=== PATIENT | female | born 1955 | race Two or more races ===

== ENCOUNTER 2017-02-02 20:00 | Inpatient (IN) | payer OTHER ==
[~2017-02-02] VITALS: Ht 160 cm; Wt 41.0 kg
[~2017-02-02 20:00] MED LIST: HYDR200T PO; LISI5TAB7 PO; METO25TA91 PO; PRED5TAB PO; SODI650T PO
[2017-02-02] MEDS ORDERED: SODIUM CHLORIDE FLUSH 10ML SYR IVF ONE (20:30)
[2017-02-02] MEDS ORDERED: SODIUM CHLORIDE 0.9% 1,000ML IVBOLUS ONE (20:30)
[2017-02-02] MEDS ORDERED: ALBUTEROL SULFATE 2.5 MG/3 ML ONE (20:34)
[2017-02-02 21:22] LABS: HEMATOCRIT 29.9 % (34.6-47.8); HEMOGLOBIN 9.9 g/dL (11.7-16.4); WHITE BLOOD COUNT 4.1 x10^3/uL (3.4-10)
[2017-02-02 21:31] LABS: BLOOD UREA NITROGEN 74 mg/dL (7-18)
[2017-02-02 21:53] LABS: IS PT STATUS REG ER OR PRE ER? YES
[2017-02-02] MEDS ORDERED: ASPIRIN 81 MG TABLET CHEW ONE (22:00)
[2017-02-02] MEDS ORDERED: ASPIRIN 81 MG TABLET CHEW PO ONE (22:00)
[2017-02-02] MEDS ORDERED: NITROGLYCERIN OINT 2%, 1GM TP ONE ×2 (22:55→23:00)
[2017-02-02] MEDS ORDERED: FUROSEMIDE 40 MG/4 ML ONE (22:56)
[2017-02-02] MEDS ORDERED: HEPARIN 5,000 UNITS/ML, 1ML IV PRN (23:00)
[2017-02-02] MEDS ORDERED: HEPARIN 25,000 UNITS/500ML PMX 500 ML IV PRN (23:00)
[2017-02-02] MEDS ORDERED: FUROSEMIDE 40 MG/4 ML IVPush ONE (23:00)
[2017-02-02] MEDS ORDERED: HEPARIN 5,000 UNITS/ML, 1ML IV ONE (23:00)
[2017-02-02] MEDS: HYDROXYCHLOROQUINE 200 MG TABLET PO SCH (23:30)
[2017-02-02] MEDS ORDERED: morphine SULFATE 10 MG/ML, 1ML IV PRN (23:30)
[2017-02-02] MEDS ORDERED: NITROGLYCERIN 0.4 MG/SPRAY SL PRN (23:30)
[2017-02-02] MEDS ORDERED: NITROGLYCERIN 0.4 MG BOTTLE (25 TABS) SL PRN (23:30)
[2017-02-02] MEDS ORDERED: ASPIRIN 325 MG TABLET EC PO ONE (23:30)
[2017-02-02] MEDS: FUROSEMIDE 20 MG/2 ML IVPush SCH (23:30)
[2017-02-02] MEDS ORDERED: NITROGLYCERIN SINGLE TAB 0.4 MG SL PRN (23:30)
[2017-02-03] MEDS ORDERED: HEPARIN 5,000 UNITS/ML, 1ML ONE (00:02)
[2017-02-03] MEDS ORDERED: HEPARIN 25,000 UNITS/500ML PMX 500 ML ONE (00:02)
[2017-02-03 00:22] LABS: IS PT STATUS REG ER OR PRE ER? YES
[2017-02-03 02:00] VITALS: BP 148/88
[2017-02-03 02:04] VITALS: BP 148/88
[2017-02-03] MEDS: SODIUM CHLORIDE FLUSH 10ML SYR IVF SCH ×3 (02:50→21:08)
[2017-02-03] MEDS: METOPROLOL SUCCINATE 25 MG TAB.ER.24H PO SCH ×2 (02:51→21:08)
[2017-02-03] MEDS: SODIUM BICARBONATE 650 MG TABLET PO SCH ×3 (02:51→21:08)
[2017-02-03 02:59] LABS: IS PT STATUS REG ER OR PRE ER? NO
[2017-02-03] MEDS: ASPIRIN 325 MG TABLET EC PO SCH (06:51)
[2017-02-03 06:53] LABS: BLOOD UREA NITROGEN 71 mg/dL (7-18)
[2017-02-03 07:00] VITALS: BP 154/97
[2017-02-03 07:02] LABS: IS PT STATUS REG ER OR PRE ER? NO
[2017-02-03] MEDS: HYDROXYCHLOROQUINE 200 MG TABLET PO SCH (09:05)
[2017-02-03 11:34] VITALS: BP 149/93
[2017-02-03] MEDS: SPIRONOLACTONE 25 MG TABLET PO SCH (11:34)
[2017-02-03] MEDS: FUROSEMIDE 20 MG/2 ML IVPush SCH ×2 (11:34→21:08)
[2017-02-03 12:31] LABS: PTH INTACT INTERPRETATION ** Comment **
[2017-02-03 13:04] LABS: IS PT STATUS REG ER OR PRE ER? NO
[2017-02-03 13:45] VITALS: BP 135/93
[2017-02-03 18:52] LABS: IS PT STATUS REG ER OR PRE ER? NO
[2017-02-03 19:04] VITALS: BP 135/84
[2017-02-03] MEDS: HEPARIN 5,000 UNITS/ML, 1ML SQ SCH (21:09)
[2017-02-04 01:30] VITALS: BP 130/86
[2017-02-04] MEDS: ASPIRIN 325 MG TABLET EC PO SCH (06:00)
[2017-02-04 06:30] LABS: BLOOD UREA NITROGEN 86 mg/dL (7-18)
[2017-02-04 06:31] LABS: ASPARTATE AMINO TRANSFERASE 48 U/L (15-37); FERRITIN 1225.8 ng/mL (8-252); TOTAL IRON BINDING CAPACITY 213 mcg/dL (250-450)
[2017-02-04 06:37] LABS: HEMATOCRIT 39.2 % (34.6-47.8); HEMOGLOBIN 12.9 g/dL (11.7-16.4)
[2017-02-04 06:55] VITALS: BP 133/82
[2017-02-04] MEDS: HEPARIN 5,000 UNITS/ML, 1ML SQ SCH ×3 (07:52→21:06)
[2017-02-04 08:28] VITALS: BP 128/79
[2017-02-04] MEDS: SODIUM BICARBONATE 650 MG TABLET PO SCH ×5 (08:34→21:04)
[2017-02-04] MEDS: SPIRONOLACTONE 25 MG TABLET PO SCH (08:34)
[2017-02-04] MEDS: FUROSEMIDE 20 MG/2 ML IVPush SCH (08:37)
[2017-02-04] MEDS: SODIUM CHLORIDE FLUSH 10ML SYR IVF SCH ×2 (08:38→21:03)
[2017-02-04] MEDS: FUROSEMIDE 40 MG/4 ML IVPush SCH ×2 (11:16→21:04)
[2017-02-04 14:35] VITALS: BP 131/83
[2017-02-04 18:45] VITALS: BP 139/90
[2017-02-04] MEDS: METOPROLOL SUCCINATE 25 MG TAB.ER.24H PO SCH (21:05)
[2017-02-05 01:43] VITALS: BP 122/89
[2017-02-05 05:49] LABS: ASPARTATE AMINO TRANSFERASE 37 U/L (15-37)
[2017-02-05 06:01] LABS: BLOOD UREA NITROGEN 111 mg/dL (7-18)
[2017-02-05 06:41] LABS: HEMATOCRIT 30.5 % (34.6-47.8); WHITE BLOOD COUNT 8.1 x10^3/uL (3.4-10)
[2017-02-05 06:42] LABS: DIFF TOTAL CELLS COUNTED 100 CELL DIFF
[2017-02-05 06:43] LABS: ANISOCYTOSIS 1+; VERIFY COUNTS? YES
[2017-02-05 06:44] LABS: POLYCHROMASIA 1+
[2017-02-05 08:38] VITALS: BP 122/73
[2017-02-05] MEDS: FUROSEMIDE 40 MG/4 ML IVPush SCH ×2 (09:21→22:17)
[2017-02-05] MEDS: SODIUM CHLORIDE FLUSH 10ML SYR IVF SCH ×2 (09:21→22:14)
[2017-02-05] MEDS: SODIUM BICARBONATE 650 MG TABLET PO SCH ×2 (09:21→22:16)
[2017-02-05] MEDS: HEPARIN 5,000 UNITS/ML, 1ML SQ SCH ×2 (09:23→22:16)
[2017-02-05 13:07] LABS: COMPLEMENT C3 31 mg/dL (82-167); COMPLEMENT C4 9 mg/dL (14-44); COMPLEMENT TOTAL (CH50) 17 U/mL (42-60)
[2017-02-05 13:49] VITALS: BP 138/82
[2017-02-05 15:22] LABS: ANA SCREEN POSITIVE (Negative)
[2017-02-05 19:26] VITALS: BP 145/89
[2017-02-05] MEDS: METOPROLOL SUCCINATE 25 MG TAB.ER.24H PO SCH (22:16)
[2017-02-06 03:38] VITALS: BP 158/77
[2017-02-06 05:39] LABS: ASPARTATE AMINO TRANSFERASE 30 U/L (15-37); BLOOD UREA NITROGEN 82 mg/dL (7-18)
[2017-02-06 06:14] LABS: HEMATOCRIT 26.8 % (34.6-47.8); HEMOGLOBIN 8.7 g/dL (11.7-16.4); WHITE BLOOD COUNT 9.7 x10^3/uL (3.4-10)
[2017-02-06] MEDS: SODIUM CHLORIDE FLUSH 10ML SYR IVF SCH ×2 (07:44→21:14)
[2017-02-06] MEDS: FUROSEMIDE 40 MG/4 ML IVPush SCH ×2 (07:44→21:13)
[2017-02-06 08:00] VITALS: BP 143/75
[2017-02-06] MEDS: HEPARIN 5,000 UNITS/ML, 1ML SQ SCH ×2 (12:39→21:13)
[2017-02-06 14:21] VITALS: BP 130/74
[2017-02-06 20:11] VITALS: BP 133/77
[2017-02-07 01:38] VITALS: BP 121/70
[2017-02-07 05:12] LABS: ASPARTATE AMINO TRANSFERASE 58 U/L (15-37); BLOOD UREA NITROGEN 75 mg/dL (7-18)
[2017-02-07 06:32] LABS: HEMATOCRIT 27.7 % (34.6-47.8); HEMOGLOBIN 9.3 g/dL (11.7-16.4); WHITE BLOOD COUNT 10.3 x10^3/uL (3.4-10)
[2017-02-07 06:50] VITALS: BP 133/82
[2017-02-07] MEDS ORDERED: MORPHINE SULFATE 4 MG/ML, 1ML IVPush PRN (11:30)
[2017-02-07] MEDS: HEPARIN 5,000 UNITS/ML, 1ML SQ SCH ×2 (12:57→21:50)
[2017-02-07] MEDS: SODIUM CHLORIDE FLUSH 10ML SYR IVF SCH ×2 (12:57→21:49)
[2017-02-07] MEDS: FUROSEMIDE 40 MG/4 ML IVPush SCH ×2 (12:58→21:00)
[2017-02-07] MEDS: ONDANSETRON 2MG/ML, 2ML IV PRN (13:02)
[2017-02-07 14:14] VITALS: BP 133/73
[2017-02-07 18:59] VITALS: BP 125/74
[2017-02-07] MEDS: CALCIUM CARBONATE 500 MG TABLET PO SCH (21:00)
[2017-02-08 01:02] VITALS: BP 124/74
[2017-02-08 05:51] LABS: ASPARTATE AMINO TRANSFERASE 97 U/L (15-37); BLOOD UREA NITROGEN 48 mg/dL (7-18)
[2017-02-08 06:42] LABS: HEMATOCRIT 28.7 % (34.6-47.8); HEMOGLOBIN 9.3 g/dL (11.7-16.4); WHITE BLOOD COUNT 10.5 x10^3/uL (3.4-10)
[2017-02-08 06:48] VITALS: BP 118/69
[2017-02-08] MEDS: SODIUM CHLORIDE FLUSH 10ML SYR IVF SCH ×2 (10:27→20:38)
[2017-02-08] MEDS: FUROSEMIDE 40 MG/4 ML IVPush SCH ×2 (10:27→20:39)
[2017-02-08] MEDS: CALCIUM CARBONATE 500 MG TABLET PO SCH ×2 (10:28→20:38)
[2017-02-08] MEDS: HEPARIN 5,000 UNITS/ML, 1ML SQ SCH ×2 (10:29→20:39)
[2017-02-08 14:40] VITALS: BP 143/79
[2017-02-08 20:36] VITALS: BP 160/81
[2017-02-09 03:30] VITALS: BP 153/82
[2017-02-09 07:54] LABS: BLOOD UREA NITROGEN 70 mg/dL (7-18)
[2017-02-09 09:03] LABS: HEMATOCRIT 26.9 % (34.6-47.8); HEMOGLOBIN 8.8 g/dL (11.7-16.4); WHITE BLOOD COUNT 11.5 x10^3/uL (3.4-10)
[2017-02-09 09:05] VITALS: BP 152/79
[2017-02-09] MEDS: CALCIUM CARBONATE 500 MG TABLET PO SCH ×2 (09:10→21:48)
[2017-02-09] MEDS: HEPARIN 5,000 UNITS/ML, 1ML SQ SCH (09:11)
[2017-02-09] MEDS: FUROSEMIDE 40 MG/4 ML IVPush SCH ×2 (09:12→21:49)
[2017-02-09] MEDS: SODIUM CHLORIDE FLUSH 10ML SYR IVF SCH ×2 (09:19→21:48)
[2017-02-09 11:07] LABS: A/G RATIO 0.4 (0.7-1.7); ALBUMIN 2.2 g/dL (2.9-4.4); ALPHA-1-GLOBULIN 0.2 g/dL (0.0-0.4); BETA GLOBULIN 0.8 g/dL (0.7-1.3); GAMMA GLOBULIN 3.1 g/dL (0.4-1.8); PROTEIN TOTAL 7.1 g/dL (6.0-8.5)
[2017-02-09 14:00] VITALS: BP 146/95
[2017-02-09 14:08] LABS: UR ALBUMIN 20.3 % (.); UR ALPHA-1-GLOBULIN 2.4 % (.); UR ALPHA-2-GLOBULIN 11.8 % (.); UR BETA GLOBULIN 17.1 % (.); UR GAMMA GLOBULIN 48.4 % (.); UR M-SPIKE % Not Observed % (Not Observed)
[2017-02-09] MEDS ORDERED: LIDOCAINE 1%, 20ML ONE (14:26)
[2017-02-09] MEDS ORDERED: FENTANYL PF 100 MCG/2ML ONE (14:37)
[2017-02-09] MEDS ORDERED: NALOXONE 1 MG/ML, 2ML ONE (14:37)
[2017-02-09] MEDS ORDERED: FLUMAZENIL 0.1 MG/1 ML, 5ML ONE (14:37)
[2017-02-09] MEDS ORDERED: MIDAZOLAM 1 MG/ML, 5ML ONE (14:37)
[2017-02-09 21:43] VITALS: BP 136/77
[2017-02-09] MEDS: ACETAMINOPHEN 325 MG TABLET PO PRN (22:26)
[2017-02-10 04:00] VITALS: BP 149/88
[2017-02-10 04:57] LABS: HEMATOCRIT 26.2 % (34.6-47.8); HEMOGLOBIN 8.7 g/dL (11.7-16.4); WHITE BLOOD COUNT 11.9 x10^3/uL (3.4-10)
[2017-02-10 05:04] LABS: BLOOD UREA NITROGEN 93 mg/dL (7-18)
[2017-02-10 05:07] LABS: ASPARTATE AMINO TRANSFERASE 31 U/L (15-37)
[2017-02-10 08:14] VITALS: BP 153/85
[2017-02-10] MEDS: FUROSEMIDE 40 MG/4 ML IVPush SCH ×3 (13:04→21:25)
[2017-02-10] MEDS: CALCIUM CARBONATE 500 MG TABLET PO SCH ×2 (13:04→21:25)
[2017-02-10] MEDS: SODIUM CHLORIDE FLUSH 10ML SYR IVF SCH ×2 (13:04→21:26)
[2017-02-10] MEDS ORDERED: MIDAZOLAM 1 MG/ML, 5ML ONE (13:50)
[2017-02-10] MEDS ORDERED: NALOXONE 1 MG/ML, 2ML ONE (13:50)
[2017-02-10] MEDS ORDERED: FENTANYL PF 100 MCG/2ML ONE (13:50)
[2017-02-10] MEDS ORDERED: FLUMAZENIL 0.1 MG/1 ML, 5ML ONE (13:50)
[2017-02-10] MEDS ORDERED: LIDOCAINE 1%, 20ML ONE ×2 (13:51→15:21)
[2017-02-10 13:52] VITALS: BP 150/85
[2017-02-10] MEDS ORDERED: CEFAZOLIN PMX 1GM/50ML 50 ML ONE (14:22)
[2017-02-10 19:16] VITALS: BP 125/72
[2017-02-10] MEDS: ONDANSETRON 2MG/ML, 2ML IV PRN (21:35)
[2017-02-11 01:50] VITALS: BP 121/75
[2017-02-11 05:36] LABS: ASPARTATE AMINO TRANSFERASE 29 U/L (15-37); BLOOD UREA NITROGEN 48 mg/dL (7-18)
[2017-02-11 05:38] LABS: HEMATOCRIT 28.6 % (34.6-47.8); HEMOGLOBIN 9.3 g/dL (11.7-16.4); WHITE BLOOD COUNT 13.1 x10^3/uL (3.4-10)
[2017-02-11] MEDS: SODIUM CHLORIDE FLUSH 10ML SYR IVF SCH ×2 (07:49→19:49)
[2017-02-11] MEDS: CALCIUM CARBONATE 500 MG TABLET PO SCH (07:50)
[2017-02-11] MEDS: FUROSEMIDE 40 MG/4 ML IVPush SCH (07:50)
[2017-02-11 08:09] VITALS: BP 120/82
[2017-02-11] MEDS: FUROSEMIDE 40 MG TABLET PO SCH (10:30)
[2017-02-11 15:14] VITALS: BP 127/75
[2017-02-11 18:50] VITALS: BP 122/69
[2017-02-11 20:53] LABS: HEMATOCRIT 25.7 % (34.6-47.8); HEMOGLOBIN 8.1 g/dL (11.7-16.4); WHITE BLOOD COUNT 12.6 x10^3/uL (3.4-10)
[2017-02-12 01:59] VITALS: BP 121/71
[2017-02-12 04:37] LABS: HEMATOCRIT 24.2 % (34.6-47.8); HEMOGLOBIN 7.9 g/dL (11.7-16.4); WHITE BLOOD COUNT 13.5 x10^3/uL (3.4-10)
[2017-02-12 04:47] LABS: BLOOD UREA NITROGEN 68 mg/dL (7-18)
[2017-02-12 04:51] LABS: ASPARTATE AMINO TRANSFERASE 23 U/L (15-37)
[2017-02-12] MEDS: ACETAMINOPHEN 325 MG TABLET PO PRN (08:59)
[2017-02-12] MEDS: SODIUM CHLORIDE FLUSH 10ML SYR IVF SCH ×2 (09:00→20:12)
[2017-02-12 09:05] VITALS: BP 136/83
[2017-02-12] MEDS: FUROSEMIDE 40 MG TABLET PO SCH (09:07)
[2017-02-12 15:40] VITALS: BP 123/72
[2017-02-12 19:14] VITALS: BP 121/71
[2017-02-13 02:59] VITALS: BP 132/78
[2017-02-13 05:20] LABS: HEMATOCRIT 26.5 % (34.6-47.8); HEMOGLOBIN 8.8 g/dL (11.7-16.4); WHITE BLOOD COUNT 11.3 x10^3/uL (3.4-10)
[2017-02-13 05:31] LABS: BLOOD UREA NITROGEN 45 mg/dL (7-18)
[2017-02-13 06:45] VITALS: BP 130/78
[2017-02-13] MEDS: SODIUM CHLORIDE FLUSH 10ML SYR IVF SCH ×2 (11:28→20:56)
[2017-02-13] MEDS: FUROSEMIDE 40 MG TABLET PO SCH (11:29)
[2017-02-13 14:01] VITALS: BP 125/66
[2017-02-13 20:31] VITALS: BP 117/74
[2017-02-14 02:00] VITALS: BP 116/63
[2017-02-14 05:13] LABS: HEMATOCRIT 25.8 % (34.6-47.8); HEMOGLOBIN 8.6 g/dL (11.7-16.4); WHITE BLOOD COUNT 11.2 x10^3/uL (3.4-10)
[2017-02-14 05:26] LABS: BLOOD UREA NITROGEN 70 mg/dL (7-18)
[2017-02-14 06:26] VITALS: BP 120/75
[2017-02-14] MEDS: SODIUM CHLORIDE FLUSH 10ML SYR IVF SCH ×2 (09:22→22:17)
[2017-02-14] MEDS: FUROSEMIDE 40 MG TABLET PO SCH (09:23)
[2017-02-14 12:50] VITALS: BP 150/80
[2017-02-14] MEDS ORDERED: NITROGLYCERIN 0.4 MG BOTTLE (25 TABS) SL PRN (19:30)
[2017-02-14] MEDS ORDERED: ONDANSETRON 2MG/ML, 2ML IV PRN (19:30)
[2017-02-14] MEDS ORDERED: MORPHINE SULFATE 4 MG/ML, 1ML IVPush PRN (19:30)
[2017-02-14] MEDS ORDERED: NITROGLYCERIN 0.4 MG/SPRAY SL PRN (19:30)
[2017-02-14 20:00] VITALS: BP 145/77
[2017-02-14 23:03] VITALS: BP 145/77
[2017-02-15 02:40] VITALS: BP 130/88
[2017-02-15 03:32] LABS: HEMOGLOBIN 8.5 g/dL (11.7-16.4); WHITE BLOOD COUNT 10.6 x10^3/uL (3.4-10)
[2017-02-15 03:42] LABS: BLOOD UREA NITROGEN 35 mg/dL (7-18)
[2017-02-15 07:14] VITALS: BP 127/80
[2017-02-15] MEDS: FUROSEMIDE 40 MG TABLET PO SCH (08:58)
[2017-02-15] MEDS: SODIUM CHLORIDE FLUSH 10ML SYR IVF SCH ×2 (08:58→21:00)
[2017-02-15 14:49] VITALS: BP 125/79
[2017-02-15 19:25] VITALS: BP 118/72
[2017-02-16 02:06] VITALS: BP 137/67
[2017-02-16 04:47] LABS: BLOOD UREA NITROGEN 79 mg/dL (7-18)
[2017-02-16 04:48] LABS: HEMATOCRIT 23.3 % (34.6-47.8); HEMOGLOBIN 7.7 g/dL (11.7-16.4); WHITE BLOOD COUNT 13.4 x10^3/uL (3.4-10)
[2017-02-16 08:26] VITALS: BP 116/72
[2017-02-16] MEDS: FUROSEMIDE 40 MG TABLET PO SCH (10:10)
[2017-02-16] MEDS: SODIUM CHLORIDE FLUSH 10ML SYR IVF SCH (10:11)
[2017-02-16] MEDS ORDERED: FURO40TA6 PO (10:22)
[2017-02-16] MEDS ORDERED: MYCO250C PO (10:22)
[2017-02-16] MEDS ORDERED: PRED20TA PO (10:22)
[2017-02-16 14:07] VITALS: BP 131/78
== END 2017-02-16 15:06 | disposition home or self-care (01) | DRG 545 ==
LOC: ED 21:09 → EDIP 22:50 → 5SO 02-03 01:19 → DCLOUNGE 02-16 14:45
PROVIDERS: ADMIT Internal Medicine; ATTEND Hospitalist
PROC: 02HV33Z Insertion of Infusion Device into Superior Vena Cava, Percutaneous Approach (ICD-10-PCS; principal; 2017-02-04)
PROC: B5181ZA Fluoroscopy of Superior Vena Cava using Low Osmolar Contrast, Guidance (ICD-10-PCS; 2017-02-04)
PROC: 02HV33Z Insertion of Infusion Device into Superior Vena Cava, Percutaneous Approach (ICD-10-PCS; 2017-02-05)
PROC: B5181ZA Fluoroscopy of Superior Vena Cava using Low Osmolar Contrast, Guidance (ICD-10-PCS; 2017-02-05)
PROC: 05HM33Z Insertion of Infusion Device into Right Internal Jugular Vein, Percutaneous Approach (ICD-10-PCS; 2017-02-10)
PROC: B5131ZA Fluoroscopy of Right Jugular Veins using Low Osmolar Contrast, Guidance (ICD-10-PCS; 2017-02-10)
PROC: 0TB13ZX Excision of Left Kidney, Percutaneous Approach, Diagnostic (ICD-10-PCS; 2017-02-10)
DX: M32.14 Glomerular disease in systemic lupus erythematosus (principal); E43 Unspecified severe protein-calorie malnutrition; N17.0 Acute kidney failure with tubular necrosis; E87.2 Acidosis; I50.40 Unspecified combined systolic (congestive) and diastolic (congestive) heart failure; E87.1 Hypo-osmolality and hyponatremia; Z68.1 Body mass index [BMI] 19.9 or less, adult; D63.8 Anemia in other chronic diseases classified elsewhere; E83.51 Hypocalcemia; I73.00 Raynaud's syndrome without gangrene; N18.9 Chronic kidney disease, unspecified; R09.02 Hypoxemia; Z87.01 Personal history of pneumonia (recurrent); Z88.8 Allergy status to other drugs, medicaments and biological substances
CPT/HCPCS: 36415; 36556; 36558; 36569; 50200; 71020; 76770; 76937; 77001; 77012; 78582; 80048; 80053; 80061; 80074; 81001; 82040; 82306; 82310; 82330; 82436; 82550; 82570; 82728; 83540; 83550; 83735; 83880; 83935; 83970; 84100; 84133; 84155; 84156; 84165; 84166; 84300; 84484; 84550; 85025; 85379; 85520; 85610; 86038; 86039; 86147; 86160; 86162; 86225; 86480; 86706; 87040; 87205; 87324; 88300; 93005; 99156; 99157; 99291; J0690; J1644; J1940; J2250; J2405; J2930; J3010; J3490; J7517; A9540; A9558; C1750; C1751; C9898; J1642; J2310; J7512

== ENCOUNTER → 2017-09-17 | Outpatient (CLI) | payer OTHER ==
[~2017-09-17] MED LIST changes: +FURO40TA6 PO; -HYDR200T PO; +HYDR200T72 PO; +MYCO250C PO; +PRED20TA PO
== END | disposition home or self-care (01) ==
LOC: CVU 14:47
PROVIDERS: ATTEND Internal Medicine Cardiovascular Disease
DX: I08.1 Rheumatic disorders of both mitral and tricuspid valves (principal); M32.9 Systemic lupus erythematosus, unspecified; I42.9 Cardiomyopathy, unspecified
CPT/HCPCS: 93306